=== PATIENT | female | born 1985 | race Asian ===

== ENCOUNTER → 2018-08-27 | Outpatient (CLI) | payer BC ==
[~2018-08-27] MED LIST: ERGO400; IBUP800 PO; IRON150C; OMEG1CAP30; Omeprazole20 M1; Percocet 5-3251 EACH PO; Verotin-Gr Cap1 EACH PO
== END | disposition home or self-care (01) ==
LOC: LAB SHORT 15:28 → LAB 15:28
DX: Z34.00 Encounter for supervision of normal first pregnancy, unspecified trimester (principal)
CPT/HCPCS: 87081; 87653

== ENCOUNTER 2018-09-24 20:07 | Inpatient (IN) | payer BC ==
[~2018-09-24] VITALS: Ht 149.9 cm; Wt 0.3 kg
[2018-09-24] MEDS ORDERED: OMEG1CAP30 (21:04)
[2018-09-24] MEDS ORDERED: Verotin-Gr Cap1 EACH PO (21:04)
[2018-09-24] MEDS ORDERED: IRON150C (21:05)
[2018-09-24] MEDS ORDERED: ERGO400 (21:05)
[2018-09-24] MEDS ORDERED: Omeprazole20 M1 (21:09)
[2018-09-24 21:19] LABS: BASOPHILS ABSOLUTE AUTO 0.02 K/mm3 (0.00-0.23); BASOPHILS PERCENT AUTO 0 % (0-2); EOSINOPHILS ABSOLUTE AUTO 0.03 K/mm3 (0.00-0.68); EOSINOPHILS PERCENT AUTO 0 % (0-6); Hematocrit 39.5 % (33.0-51.0); Hemoglobin 13.6 g/dL (11.5-16.0); IMMATURE GRAN ABSOLUTE AUTO 0.05 K/mm3 (0.00-0.10); IMMATURE GRAN PERCENT AUTO 1 % (0-1); LYMPHOCYTES ABSOLUTE AUTO 1.86 K/mm3 (0.84-5.20); LYMPHOCYTES PERCENT AUTO 20 % (21-46); MONOCYTES ABSOLUTE AUTO 0.69 K/mm3 (0.16-1.47); MONOCYTES PERCENT AUTO 7 % (4-13); Mean Corpuscular HGB 30.9 pg (26.0-34.0); Mean Corpuscular HGB Conc 34.4 g/dL (31.5-36.5); Mean Corpuscular Volume 90 fL (80-100); Mean Platelet Volume 12.3 fL (9.1-12.4); NEUTROPHILS ABSOLUTE AUTO 6.67 K/mm3 (1.96-9.15); NEUTROPHILS PERCENT AUTO 72 % (41-73); Platelet Count 171 K/mm3 (150-400); RDW Coefficient Variation 14.1 % (11.7-14.2); White Blood Cell Count 9.32 K/mm3 (4.00-11.30)
[2018-09-26 05:58] LABS: Hemoglobin 11.1 g/dL (11.5-16.0); Mean Corpuscular HGB 30.4 pg (26.0-34.0); Mean Corpuscular HGB Conc 33.6 g/dL (31.5-36.5); Mean Corpuscular Volume 90 fL (80-100); Mean Platelet Volume 12.1 fL (9.1-12.4); Platelet Count 124 K/mm3 (150-400); RDW Coefficient Variation 14.4 % (11.7-14.2); RDW Standard Deviation 47.7 fL (35.1-46.3); Red Blood Cell Count 3.65 M/mm3 (3.80-5.20); White Blood Cell Count 11.35 K/mm3 (4.00-11.30)
[2018-09-27] MEDS ORDERED: IBUP800 PO (10:15)
[2018-09-27] MEDS ORDERED: Percocet 5-3251 EACH PO (10:16)
== END 2018-09-27 17:15 | disposition home or self-care (01) | DRG 788 ==
LOC: BC 20:07
PROVIDERS: ADMIT Obstetrics & Gynecology
PROC: 3E0R3BZ Introduction of Anesthetic Agent into Spinal Canal, Percutaneous Approach (ICD-10-PCS; 2018-09-25)
PROC: 10D00Z1 Extraction of Products of Conception, Low, Open Approach (ICD-10-PCS; principal; 2018-09-25 19:00)
DX: O24.420 Gestational diabetes mellitus in childbirth, diet controlled (principal); O99.824 Streptococcus B carrier state complicating childbirth; Z3A.40 40 weeks gestation of pregnancy; Z37.0 Single live birth; O76 Abnormality in fetal heart rate and rhythm complicating labor and delivery; Z79.899 Other long term (current) drug therapy
CPT/HCPCS: 36415; 51702; 82947; 85025; 85027; 86850; 86900; 86901; J0290; J0690; J1200; J1885; J2001; J2274; J2370; J2405; J2590; J2765; J3010; J7120

== ENCOUNTER → 2018-11-18 | Outpatient (CLI) | payer BC ==
[2018-11-19 15:07] LABS: HPV 16 Negative (Negative); HPV 18 Negative (Negative); HPV OTHER HR TYPES Negative (Negative)
== END | disposition home or self-care (01) ==
LOC: LAB SHORT 10:25 → LAB 10:25
PROVIDERS: Obstetrics & Gynecology
DX: Z09 Encounter for follow-up examination after completed treatment for conditions other than malignant neoplasm (principal); Z87.42 Personal history of other diseases of the female genital tract; Z86.19 Personal history of other infectious and parasitic diseases
CPT/HCPCS: 87624; 88142

== ENCOUNTER → 2021-11-29 | Outpatient (CLI) | payer BC ==
[2021-12-04 17:10] LABS: HPV 16 Negative (Negative); HPV 18 Negative (Negative); HPV OTHER HR TYPES Negative (Negative)
== END | disposition home or self-care (01) ==
LOC: LAB SHORT 09:00
PROVIDERS: Internal Medicine
DX: Z12.4 Encounter for screening for malignant neoplasm of cervix (principal)
CPT/HCPCS: 87624; G0145

== ENCOUNTER → 2022-12-21 | Outpatient (CLI) | payer BC ==
[2022-12-25 17:10] LABS: HPV 16 Negative (Negative); HPV 18 Negative (Negative); HPV OTHER HR TYPES Negative (Negative)
== END | disposition home or self-care (01) ==
LOC: LAB SHORT 16:49 → LAB 16:49
PROVIDERS: Internal Medicine
DX: Z12.4 Encounter for screening for malignant neoplasm of cervix (principal)
CPT/HCPCS: 87624; G0145

== ENCOUNTER → 2023-05-28 | Outpatient (CLI) | payer BC | LOC: LAB 18:38 → LAB SHORT 18:38 | DX: Z11.3 Encounter for screening for infections with a predominantly sexual mode of transmission (principal) | CPT/HCPCS: 86592 ==

== ENCOUNTER 2025-06-29 14:57 | Emergency (ER) | payer BC ==
[~2025-06-29] VITALS: Ht 147.3 cm; Wt 56.7 kg
[2025-06-29 15:04] VITALS: BP 126/103
[2025-06-29] MEDS ORDERED: Ketorolac Tromethamine 15mg Vial IM ONE (15:05)
[2025-06-29] MEDS ORDERED: Methocarbamol500 MG PO (16:05)
== END 2025-06-29 16:13 | disposition home or self-care (01) ==
LOC: ER 14:57
DX: M54.50 Low back pain, unspecified (principal); Z79.899 Other long term (current) drug therapy
CPT/HCPCS: 96372; 99283-25; A9270; J1885